=== PATIENT | male | born 1965 | race Caucasian/White ===

== ENCOUNTER 2017-03-04 11:47 | Observation (INO) | payer BC, MEDICARE ==
[2017-03-04 12:29] LABS: Basophils # (A) 0.1 k/uL (0-0.2); Basophils % (A) 1 %; CH 29.1; CHCM 33.9; Eosinophils # (A) 0.2 k/uL (0-0.7); Eosinophils % (A) 3 %; HDW 2.81; HGB 17.2 gm/dL (13.0-17.5); Luc % (Auto) 1; Lymphocytes # (A) 1.6 k/uL (1.0-4.8); Lymphocytes % (A) 21 %; MCH 29.1 pg (25.0-35.0); MCHC 33.7 g/dL (31.0-37.0); MCV 86.4 fL (80.0-100.0); Mean Platelet Volume 6.9; Monocytes # (A) 0.4 k/uL (0-1.0); Monocytes % (A) 5 %; Neutrophils # (A) 5.2 k/uL (1.3-7.7); Neutrophils % (A) 69 %; WBC 7.6 k/uL (3.8-10.6); WBC (Perox) 7.47
[2017-03-04 12:38] LABS: ALT 49 U/L (21-72); AST 19 U/L (17-59); Alkaline Phosphatase 95 U/L (38-126); Anion Gap 11 mmol/L; Blood Urea Nitrogen 14 mg/dL (9-20); Calcium 8.9 mg/dL (8.4-10.2); Carbon Dioxide 24 mmol/L (22-30); Chloride 103 mmol/L (98-107); Glucose 230 mg/dL (74-99); Magnesium 2.2 mg/dL (1.6-2.3); Non-African American GFR(MDRD) >60 (>60 ml/min/1.73 sqM); Potassium 4.5 mmol/L (3.5-5.1); Sodium 138 mmol/L (137-145); Total Bilirubin 0.7 mg/dL (0.2-1.3); Total Protein 7.3 g/dL (6.3-8.2)
--- NOTE | 2017-03-04 12:39 | XR ---
EXAMINATION TYPE: XR chest 2V DATE OF EXAM: 03/04/2017 COMPARISON: NONE HISTORY: Chest pain for 3 days and abnormal EKG. TECHNIQUE: Frontal and lateral views of the chest are obtained. FINDINGS: There is no focal air space opacity, pleural effusion, or pneumothorax seen. The cardiac silhouette size is upper limits of normal size. The osseous structures are intact. Mild multilevel de generative changes of the thoracic spine are noted. IMPRESSION: No acute cardiopulmonary process.
[2017-03-04 12:50] LABS: Partial Thromboplastin Time 23.4 sec (22.0-30.0); Prothrombin Time 10.2 sec (9.0-12.0)
[2017-03-04 12:54] LABS: Creatine Kinase 48 U/L (55-170)
--- NOTE | 2017-03-04 13:04 | ED ---
General Adult HPI - General Chief complaint: Chest Pain Stated complaint: chest pain/sent by doctor Time Seen by Provider: 03/04/17 12:08 Source: patient, RN notes reviewed, old records reviewed Mode of arrival: wheelchair Limitations: no limitations - History of Present Illness Initial comments: This is a 51-year-old male to the ER for evaluation regarding chest pain. Patient having anterior chest pain chest pain the left-sided chest pain the left jaw. Patient has history of diabetes high cholesterol. No prior history of heart disease. Patient coming in with continued chest pain or shortness of breath at this time, weakness fatigue. Worse with activity. No recent travel history no sick contacts no fevers cough or congestion - Related Data Home Medications Medication Instructions Recorded Confirmed Atorvastatin [Lipitor] 10 mg PO HS 01/30/14 03/04/17 Insulin Glulisine [Apidra] 20 unit SQ TID 01/30/14 03/04/17 Losartan [Cozaar] 50 mg PO DAILY 01/30/14 03/04/17 Dapagliflozin Propanediol [Farxiga] 10 mg PO DAILY 03/04/17 03/04/17 Escitalopram [Lexapro] 10 mg PO DAILY 03/04/17 03/04/17 HYDROcodone/APAP 7.5-325MG [[place]ron 1 tab PO Q6H PRN 03/04/17 03/04/17 7.5-325] Insulin Glargine,Hum.rec.anlog 110 units SQ DAILY 03/04/17 03/04/17 [Toujeo Solostar] Allergies Allergy/AdvReac Type Severity Reaction Status Date / Time meperidine HCl [From Demerol] Allergy Unknown Nausea & Verified 03/04/17 13:05 Vomiting Penicillins Allergy Unknown Unknown Verified 03/04/17 13:05 Childhood Review of Systems ROS Statement: Those systems with pertinent positive or pertinent negative responses have been documented in the HPI. ROS Other: All systems not noted in ROS Statement are negative. Past Medical History Past Medical History: Cancer, Diabetes Mellitus, Hyperlipidemia Additional Past Medical History / Comment(s): HX OF RECTAL CA(AGE 27), HAS COLOSTOMY, WHICH HE STATES IS HERNIATED. 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 History of Any Multi-Drug Resistant Organisms: None Reported Past Surgical History: Back Surgery, Bowel Resection, Orthopedic Surgery Additional Past Surgical History / Comment(s): BEKA KNEE, RT ROTATOR CUFF, COLOSTOMY (2007), REPAIR OF HERNIATED COLOSTOMY (2013) Past Anesthesia/Blood Transfusion Reactions: Postoperative Nausea & Vomiting ( PONV) Past Psychological History: Anxiety, Depression Smoking Status: Never smoker Past Alcohol Use History: None Reported Past Drug Use History: None Reported General Exam Limitations: no limitations General appearance: alert, in no apparent distress, obese Head exam: Present: atraumatic, normocephalic, normal inspection Eye exam: Present: normal appearance, PERRL, EOMI. Absent: scleral icterus, conjunctival injection, periorbital swelling ENT exam: Present: normal exam, mucous membranes moist Neck exam: Present: normal inspection. Absent: tenderness, meningismus, lymphadenopathy Respiratory exam: Present: normal lung sounds bilaterally. Absent: respiratory distress, wheezes, rales, rhonchi, stridor Cardiovascular Exam: Present: regular rate, normal rhythm, normal heart sounds. Absent: systolic murmur, diastolic murmur, rubs, gallop, clicks GI/Abdominal exam: Present: soft, normal bowel sounds. Absent: distended, tenderness, guarding, rebound, rigid Extremities exam: Present: normal inspection, full ROM, normal capillary refill. Absent: tenderness, pedal edema, joint swelling, calf tenderness Back exam: Present: normal inspection Neurological exam: Present: alert, oriented X3, CN II-XII intact Psychiatric exam: Present: normal affect, normal mood Skin exam: Present: warm, dry, intact, normal color. Absent: rash Course Vital Signs 03/04/17 03/04/17 11:58 13:23 Temperature 97.1 F L Pulse Rate 75 73 Respiratory 18 17 Rate Blood Pressure 139/83 124/72 O2 Sat by Pulse 99 96 Oximetry EKG Findings - EKG Comments: EKG Findings:: EKG shows normal sinus rhythm rate of 71, IN 146, QRS 102, QTc 447 Medical Decision Making - Medical Decision Making 51 male to ER for evaluation of chest pain. Patient will be admitted for chest pain observation, anticoagulation, cardiac evaluation - Lab Data Result diagrams: 03/04/17 12:15 03/04/17 12:15 Lab Results 03/04/17 03/04/17 03/04/17 Range/Units 12:15 12:15 12:15 WBC 7.6 (3.8-10.6) k/uL RBC 5.90 (4.30-5.90) m/uL Hgb 17.2 (13.0-17.5) gm/dL Hct 51.0 (39.0-53.0) % MCV 86.4 (80.0-100.0) fL MCH 29.1 (25.0-35.0) pg MCHC 33.7 (31.0-37.0) g/dL RDW 14.0 (11.5-15.5) % Plt Count 218 (150-450) k/uL Neutrophils % 69 % Lymphocytes % 21 % Monocytes % 5 % Eosinophils % 3 % Basophils % 1 % Neutrophils # 5.2 (1.3-7.7) k/uL Lymphocytes # 1.6 (1.0-4.8) k/uL Monocytes # 0.4 (0-1.0) k/uL Eosinophils # 0.2 (0-0.7) k/uL Basophils # 0.1 (0-0.2) k/uL PT (9.0-12.0) sec INR (<1.2) APTT (22.0-30.0) sec Sodium 138 (137-145) mmol/L Potassium 4.5 (3.5-5.1) mmol/L Chloride 103 (98-107) mmol/L Carbon Dioxide 24 (22-30) mmol/L Anion Gap 11 mmol/L BUN 14 (9-20) mg/dL Creatinine 0.80 (0.66-1.25) mg/dL Est GFR (MDRD) Af Amer >60 (>60 ml/min/1.73 sqM) Est GFR (MDRD) Non-Af >60 (>60 ml/min/1.73 sqM) Glucose 230 H (74-99) mg/dL Calcium 8.9 (8.4-10.2) mg/dL Magnesium 2.2 (1.6-2.3) mg/dL Total Bilirubin 0.7 (0.2-1.3) mg/dL AST 19 (17-59) U/L ALT 49 (21-72) U/L Alkaline Phosphatase 95 (38-126) U/L Total Creatine Kinase 48 L (55-170) U/L CK-MB (CK-2) 0.5 (0.0-2.4) ng/mL CK-MB (CK-2) Rel Index 1.0 Troponin I <0.012 (0.000-0.034) ng/mL Total Protein 7.3 (6.3-8.2) g/dL Albumin 4.2 (3.5-5.0) g/dL 03/04/17 Range/Units 12:15 WBC (3.8-10.6) k/uL RBC (4.30-5.90) m/uL Hgb (13.0-17.5) gm/dL Hct (39.0-53.0) % MCV (80.0-100.0) fL MCH (25.0-35.0) pg MCHC (31.0-37.0) g/dL RDW (11.5-15.5) % Plt Count (150-450) k/uL Neutrophils % % Lymphocytes % % Monocytes % % Eosinophils % % Basophils % % Neutrophils # (1.3-7.7) k/uL Lymphocytes # (1.0-4.8) k/uL Monocytes # (0-1.0) k/uL Eosinophils # (0-0.7) k/uL Basophils # (0-0.2) k/uL PT 10.2 (9.0-12.0) sec INR 1.0 (<1.2) APTT 23.4 (22.0-30.0) sec Sodium (137-145) mmol/L Potassium (3.5-5.1) mmol/L Chloride (98-107) mmol/L Carbon Dioxide (22-30) mmol/L Anion Gap mmol/L BUN (9-20) mg/dL Creatinine (0.66-1.25) mg/dL Est GFR (MDRD) Af Amer (>60 ml/min/1.73 sqM) Est GFR (MDRD) Non-Af (>60 ml/min/1.73 sqM) Glucose (74-99) mg/dL Calcium (8.4-10.2) mg/dL Magnesium (1.6-2.3) mg/dL Total Bilirubin (0.2-1.3) mg/dL AST (17-59) U/L ALT (21-72) U/L Alkaline Phosphatase (38-126) U/L Total Creatine Kinase (55-170) U/L CK-MB (CK-2) (0.0-2.4) ng/mL CK-MB (CK-2) Rel Index Troponin I (0.000-0.034) ng/mL Total Protein (6.3-8.2) g/dL Albumin (3.5-5.0) g/dL - Radiology Data Radiology results: report reviewed (Chest x-ray is negative for acute disease), image reviewed Critical Care Time Critical Care Time: Yes Total Critical Care Time: 31 Disposition Clinical Impression: Chest pain Disposition: ADMITTED IP TO THIS HOSP Condition: Undetermined Instructions: Chest Pain (ED) Referrals: Nelson Carney DO [Primary Care Provider] - 1-2 days
[2017-03-04 13:06] LABS: Creatine Kinase MB 0.5 ng/mL (0.0-2.4); Troponin I <0.012 ng/mL (0.000-0.034)
[2017-03-04] MEDS ORDERED: NITROGLYCERIN SL TABS 0.4 MG TAB SUBLINGUAL PRN (14:07)
[2017-03-04] MEDS ORDERED: HEPARIN SODIUM,PORCINE 5,000 UNIT/ML 1 ML VIAL IV ONE (14:07)
[2017-03-04] MEDS ORDERED: ASPIRIN 81 MG PO STA (14:07)
[2017-03-04] MEDS ORDERED: HEPARIN SODIUM,PORCINE 5,000 UNIT/ML 1 ML VIAL IV PRN (14:07)
[2017-03-04] MEDS ORDERED: HEPARIN SODIUM,PORCINE 25,000 UNIT in SODIUM CHLORIDE 0.45 % 500 ML IV SCH (14:15)
[2017-03-04 15:55] VITALS: RESP 18
[2017-03-04 16:59] LABS: Glucose,Whole Blood 184 mg/dL (75-99)
[2017-03-04 17:40] VITALS: BP 121/57; PULSE 78; TEMP 97.4
[2017-03-04] MEDS ORDERED: LOSARTAN 50 MG TAB PO SCH (21:00)
[2017-03-04] MEDS ORDERED: METOPROLOL TARTRATE 25 MG TAB PO SCH (21:00)
[2017-03-04] MEDS ORDERED: ESCITALOPRAM 10 MG TAB PO SCH (21:00)
[2017-03-05] MEDS ORDERED: ATORVASTATIN 80 MG TAB PO SCH (09:00)
[2017-03-05] MEDS ORDERED: INSULIN DETEMIR 100 UNIT/ML 10 ML VIAL SQ SCH (09:00)
[2017-03-05] MEDS ORDERED: ASPIRIN 325 MG TAB PO SCH (09:00)
[2017-03-05] MEDS ORDERED: INSULIN ASPART 100 UNIT/ML 1 ML 10 ML VIAL SQ SCH (18:00)
--- NOTE | 2017-03-05 19:37 | HP ---
HISTORY AND PHYSICAL CHIEF COMPLAINT: Chest pain. HISTORY OF PRESENT ILLNESS: This 51-year-old male was admitted through the emergency room to the floor. Shortly after he got the floor, he signed out against medical advice. There is no further history taken or physical performed. He is admitted to the hospital with diagnosis of chest pain. PLAN: Bed rest, IVs and serial EKGs and enzymes. He signed out AMA. JED / JESSICA: [id number] /
--- NOTE | 2017-03-06 08:18 | DS ---
DISCHARGE SUMMARY CHIEF COMPLAINT: Chest pain. HISTORY OF PRESENT ILLNESS AND PHYSICAL EXAM.: There was no history taken or physical performed. Patient signed out against medical advice. FINAL DIAGNOSIS: Chest pain. OPERATIONS: None. CONSULTATION: None. He signed out AMA. JED / JESSICA: [id number] /
== END 2017-03-04 19:00 | disposition left against medical advice (07) ==
LOC: EC 11:47 → 6SEL 14:07
PROVIDERS: ADMIT Family Medicine; ATTEND Family Medicine
DX: R07.89 Other chest pain (principal); Z53.21 Procedure and treatment not carried out due to patient leaving prior to being seen by health care provider; R06.02 Shortness of breath; R53.1 Weakness; E11.9 Type 2 diabetes mellitus without complications; E78.00 Pure hypercholesterolemia, unspecified; Z93.3 Colostomy status; F41.9 Anxiety disorder, unspecified; F32.9 Major depressive disorder, single episode, unspecified; Z79.899 Other long term (current) drug therapy; Z79.4 Long term (current) use of insulin; Z79.84 Long term (current) use of oral hypoglycemic drugs; Z88.0 Allergy status to penicillin; Z88.5 Allergy status to narcotic agent; Z85.048 Personal history of other malignant neoplasm of rectum, rectosigmoid junction, and anus; E66.9 Obesity, unspecified; Z68.34 Body mass index [BMI] 34.0-34.9, adult
CPT/HCPCS: 99291; 96374; 36415; 93005; 80053; 82550; 82553; 83735; 84484; 85025; 85610; 85730; 71020; G0378; J1644 ×2

== ENCOUNTER 2017-04-16 19:45 | Emergency (ER) | payer BC, MEDICARE, OTHER ==
[2017-04-16 19:51] VITALS: BP 150/73; PULSE 78; RESP 20; TEMP 97.8
--- NOTE | 2017-04-16 20:09 | ED ---
Back Pain HPI - General Chief Complaint: Back Pain/Injury Stated Complaint: FALL Time Seen by Provider: 04/16/17 19:53 Source: patient Limitations: no limitations - History of Present Illness Initial Comments: Patient is a 51-year-old male who presents with a chief complaint of fall and back injury. The [facility] when he fell on the escalator. The patient states that when he was going down the escalator, his right arm caught the railing on the stairs that were next to the escalator and lifted him up and he fell. The patient states that he scratched his back on the edges of the escalator step. The patient was immediately evaluated by medical staff at the [facility]. After that, the patient continued to [place] and later decided to come to the emergency department in [place] as he lives here. On initial evaluation, the patient states that he just wanted to get checked out. He does not have any spinal tenderness, his gait is at baseline. - Related Data Home Medications Medication Instructions Recorded Confirmed Atorvastatin [Lipitor] 10 mg PO DAILY 01/30/14 04/16/17 Insulin Glulisine [Apidra] 20 unit SQ TID 01/30/14 04/16/17 Losartan [Cozaar] 50 mg PO HS 01/30/14 04/16/17 Escitalopram [Lexapro] 10 mg PO HS 03/04/17 04/16/17 Insulin Glargine,Hum.rec.anlog 110 units SQ DAILY 03/04/17 04/16/17 [Toujeo Solostar] Aspirin EC [Ecotrin Low Dose] 81 mg PO DAILY 04/16/17 04/16/17 Empagliflozin [Jardiance] 10 mg PO DAILY 04/16/17 04/16/17 Insulin Aspart [NovoLOG 20 unit SQ AC-TID 04/16/17 04/16/17 (formulary)] Insulin Aspart [NovoLOG See Protocol SQ AC-TID 04/16/17 04/16/17 (formulary)] Allergies Allergy/AdvReac Type Severity Reaction Status Date / Time meperidine HCl [From Demerol] Allergy Unknown Nausea & Verified 04/16/17 19:57 Vomiting Penicillins Allergy Unknown Unknown Verified 04/16/17 19:57 Childhood Review of Systems ROS Statement: Those systems with pertinent positive or pertinent negative responses have been documented in the HPI. ROS Other: All systems not noted in ROS Statement are negative. 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 History of Any Multi-Drug Resistant Organisms: None Reported Past Surgical History: Back Surgery, Bowel Resection, Orthopedic Surgery Additional Past Surgical History / Comment(s): 2002 AP resection, 2006 resection /colostomy, 2012 repair stoma hernia, large cyst removed from low back, R rotator cuff surgery, multiple colonoscopies, R knee arthroscopy, L hydocele/ small tumor removed, fatty tumors removed from back, 2 benign tumors removed from R groin. Past Anesthesia/Blood Transfusion Reactions: Postoperative Nausea & Vomiting ( PONV) Past Psychological History: Anxiety, Depression Smoking Status: Never smoker Past Alcohol Use History: None Reported Past Drug Use History: None Reported - Past Family History Mother Family Medical History: Myocardial Infarction ([place]) Additional Family Medical History / Comment(s): Pt states mother at the age of 51 yrs from [place]/aortic aneurysm rupture. Father Family Medical History: No Reported History Additional Family Medical History / Comment(s): Father is 78yrs old and healthy. General Exam Limitations: no limitations General appearance: alert, in no apparent distress Head exam: Present: atraumatic, normocephalic Eye exam: Present: normal appearance ENT exam: Present: mucous membranes moist Neck exam: Absent: tenderness Respiratory exam: Present: normal lung sounds bilaterally Cardiovascular Exam: Present: regular rate, normal rhythm GI/Abdominal exam: Present: soft Extremities exam: Present: other (Patient has a very small abrasion to the right distal dorsal aspect of his calf). Absent: pedal edema Back exam: Present: normal inspection Neurological exam: Present: alert, oriented X3 Psychiatric exam: Present: normal affect, normal mood Skin exam: Present: abrasion (Patient has 4 linear abrasions to the right paraspinal aspect of his lower back. There is no bleeding.) Course Vital Signs 04/16/17 19:46 Temperature 97.8 F Pulse Rate 78 Respiratory 20 Rate Blood Pressure 150/73 O2 Sat by Pulse 98 Oximetry Medical Decision Making - Medical Decision Making Patient presents with a chief complaint of a fall on an escalator. The patient states that he scratched his skin on his back on the escalator steps. He is up- to-date on his tetanus. Patient is able to gait normally. He is not having significant pain. He was offered x-rays but declines as he would not like to be exposed to radiation because he has had colon cancer before. At this time, the patient will have antibiotic ointment applied to the area will be discharged. He was instructed to follow-up with primary care or return to the emergency department if symptoms worsen or change. Disposition Clinical Impression: Abrasion Disposition: HOME SELF-CARE Condition: Good Instructions: Abrasion (ED) Referrals: Nelson Carney DO [Primary Care Provider] - 1-2 days
== END 2017-04-16 20:20 | disposition home or self-care (01) ==
LOC: EC 19:45
DX: S30.810A Abrasion of lower back and pelvis, initial encounter (principal); E11.9 Type 2 diabetes mellitus without complications; I10 Essential (primary) hypertension; M19.90 Unspecified osteoarthritis, unspecified site; F32.9 Major depressive disorder, single episode, unspecified; F41.9 Anxiety disorder, unspecified; Z85.048 Personal history of other malignant neoplasm of rectum, rectosigmoid junction, and anus; Z79.4 Long term (current) use of insulin; Z79.82 Long term (current) use of aspirin; Z79.899 Other long term (current) drug therapy; Z88.0 Allergy status to penicillin; Z88.5 Allergy status to narcotic agent; W10.0XXA Fall (on)(from) escalator, initial encounter; Y92.59 Other trade areas as the place of occurrence of the external cause
CPT/HCPCS: 99283

== ENCOUNTER 2017-12-01 13:33 | Emergency (ER) | payer BC, MEDICARE ==
--- NOTE | 2017-12-01 14:27 | XR ---
Right hand HISTORY: Right hand pain, trauma 3 views of the right hand Bone mineralization and joint spaces are maintained. There is some volar angulation of the fifth meta carpal, cortical thickening is present suggestive of old healed boxer's fracture. Remodeling present at the radiocarpal joint likely due to underlying arthropathy. Question bony density at the proximal aspect of the first metacarpal seen on the lateral exam, correlate for point tenderness. There is sof t tissue swelling. IMPRESSION: No dislocation. Findings at the first and fifth metacarpals as described. Correlate for p oint tenderness.
[2017-12-01 15:39] VITALS: BP 120/70; PULSE 70; RESP 18; TEMP 98
--- NOTE | 2017-12-01 15:44 | ED ---
Upper Extremity HPI - General Chief Complaint: Extremity Injury, Upper Stated Complaint: right hand pain Time Seen by Provider: 12/01/17 15:19 Source: patient, RN notes reviewed Mode of arrival: ambulatory Limitations: no limitations - History of Present Illness Initial Comments: This is a 52-year-old male who presents to the emergency department with chief complaint of right hand injury. Patient reports falling yesterday on an outstretched hand. He reports pain to the joint of his thumb and down into the proximal hand. States he has difficulty flexing the finger. Reports normal sensation. Denies any other injuries or trauma. Denies fever, chills, chest pain, shortness of breath, numbness or tingling, headache or vision changes. - Related Data Home Medications Medication Instructions Recorded Confirmed Atorvastatin [Lipitor] 10 mg PO DAILY 01/30/14 04/16/17 Insulin Glulisine [Apidra] 20 unit SQ TID 01/30/14 04/16/17 Losartan [Cozaar] 50 mg PO HS 01/30/14 04/16/17 Escitalopram [Lexapro] 10 mg PO HS 03/04/17 04/16/17 Insulin Glargine,Hum.rec.anlog 110 units SQ DAILY 03/04/17 04/16/17 [Toujeo Solostar] Aspirin EC [Ecotrin Low Dose] 81 mg PO DAILY 04/16/17 04/16/17 Empagliflozin [Jardiance] 10 mg PO DAILY 04/16/17 04/16/17 Insulin Aspart [NovoLOG 20 unit SQ AC-TID 04/16/17 04/16/17 (formulary)] Insulin Aspart [NovoLOG See Protocol SQ AC-TID 04/16/17 04/16/17 (formulary)] Allergies Allergy/AdvReac Type Severity Reaction Status Date / Time meperidine HCl [From Demerol] Allergy Unknown Nausea & Verified 12/01/17 15:49 Vomiting Penicillins Allergy Unknown Unknown Verified 12/01/17 15:49 Childhood Review of Systems ROS Statement: Those systems with pertinent positive or pertinent negative responses have been documented in the HPI. ROS Other: All systems not noted in ROS Statement are negative. 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 History of Any Multi-Drug Resistant Organisms: None Reported Past Surgical History: Back Surgery, Bowel Resection, Orthopedic Surgery Additional Past Surgical History / Comment(s): 2002 AP resection, 2006 resection /colostomy, 2012 repair stoma hernia, large cyst removed from low back, R rotator cuff surgery, multiple colonoscopies, R knee arthroscopy, L hydocele/ small tumor removed, fatty tumors removed from back, 2 benign tumors removed from R groin. Past Anesthesia/Blood Transfusion Reactions: Postoperative Nausea & Vomiting ( PONV) Past Psychological History: Anxiety, Depression Smoking Status: Never smoker Past Alcohol Use History: None Reported Past Drug Use History: None Reported - Past Family History Mother Family Medical History: Myocardial Infarction ([place]) Additional Family Medical History / Comment(s): Pt states mother at the age of 51 yrs from [place]/aortic aneurysm rupture. Father Family Medical History: No Reported History Additional Family Medical History / Comment(s): Father is 78yrs old and healthy. General Exam - General Exam Comments Initial Comments: General: Awake and alert, well-developed; in no apparent distress. HEENT: Head atraumatic, normocephalic. Pupils are equal, round and reactive to light. Extraocular movements intact. Oropharynx moist without erythema or exudate. Neck: Supple. Normal ROM. Cardiovascular: Regular rate and rhythm. No murmurs, rubs or gallops. Chest symmetrical. Respiratory: Lungs clear to auscultation bilaterally. No wheezes, rales or rhonchi. Normal respiratory effort with no use of accessory muscles. Musculoskeletal: Limited active range of motion of the IP and MCP joints of the right thumb. Passive range of motion is intact. Tenderness on palpation of the MCP joint and anatomic snuffbox. Soft tissue swelling along radial aspect right wrist. No ecchymosis, erythema noted. Sensation is intact. Radial pulses are 2+ equal and palpable bilaterally. Ambulating with a cane. Skin: [place], warm and dry without rashes or lesions. Neurological: Alert and oriented x3. CN II-XII grossly intact. Speech is fluent and answers are appropriate. No focal neuro deficits. Psychiatric: Normal mood and affect. No overt signs of depression or anxiety noted. Limitations: no limitations Course Vital Signs 12/01/17 12/01/17 13:54 15:38 Temperature 98.4 F 98 F Pulse Rate 74 70 Respiratory 16 18 Rate Blood Pressure 142/74 120/70 O2 Sat by Pulse 96 98 Oximetry Procedures - Orthopedic Splinting/Casting Injury #1 Side: right Upper Extremity Injury Location: wrist Upper Extremity Immobilizer: thumb spica, synthetic pre-padded splint Medical Decision Making - Medical Decision Making This is a 52-year-old male who presents to the emergency department with chief complaint of right hand injury. Patient reports falling on outstretched hand yesterday. On physical examination, patient has limited active range of motion of the right thumb joints due to pain. There is anatomic snuffbox tenderness and tenderness at the MCP joint. Short arm OCL thumb spica splint was placed and patient tolerated well without complication. He is neurovascularly intact. Recommended following up with orthopedics for repeat x-rays. Recommended rest, ice and Tylenol or ibuprofen as needed. Patient is in agreement with plan and voices understanding. Vital signs are stable and he is in no acute distress. He will be discharged with this time. All questions answered. - Radiology Data Radiology results: report reviewed, image reviewed X-ray right hand findings: Bone mineralization and joint spaces are maintained. There is some volar angulation of the fifth metacarpal, cortical thickening is present suggestive of old healed boxer's fracture. Remodeling present at the radiocarpal joint likely due to underlying arthropathy. Question bony density at the proximal aspect of the first metacarpal seen on the lateral exam, correlate for point tenderness. There is soft tissue swelling. Impression: No dislocation. Findings at the fifth and first metacarpals as described. Correlate for point tenderness. Disposition Clinical Impression: Right wrist pain Disposition: HOME SELF-CARE Condition: Good Instructions: Wrist Injury (ED) Additional Instructions: Please follow up with [facility] within 1-2 days. Please keep splint clean, dry and intact. Please rest, ice and take ibuprofen or Tylenol as needed for pain. Please follow up with primary care provider within 1-2 days. Return to emergency department if symptoms should worsen or any concerns arise. Is patient prescribed a controlled substance at d/c from ED?: No Referrals: Nelson Carney DO [Primary Care Provider] - 1-2 days Rome Fuentes MD [Medical Doctor] - 1-2 days Time of Disposition: 15:50
== END 2017-12-01 16:21 | disposition home or self-care (01) ==
LOC: EC 13:33
DX: M25.531 Pain in right wrist (principal); M79.89 Other specified soft tissue disorders; M79.644 Pain in right finger(s); I10 Essential (primary) hypertension; E11.9 Type 2 diabetes mellitus without complications; M19.041 Primary osteoarthritis, right hand; M19.042 Primary osteoarthritis, left hand; F32.9 Major depressive disorder, single episode, unspecified; F41.9 Anxiety disorder, unspecified; Z79.4 Long term (current) use of insulin; Z79.82 Long term (current) use of aspirin; Z79.899 Other long term (current) drug therapy; Z88.0 Allergy status to penicillin; Z88.5 Allergy status to narcotic agent; Z85.048 Personal history of other malignant neoplasm of rectum, rectosigmoid junction, and anus; Z98.890 Other specified postprocedural states; Z93.3 Colostomy status; W19.XXXA Unspecified fall, initial encounter
CPT/HCPCS: 29125; 99283

== ENCOUNTER 2018-10-15 14:55 | Emergency (ER) | payer BC, MEDICARE ==
[2018-10-15 15:01] VITALS: BP 144/87; PULSE 74; RESP 18; TEMP 98
--- NOTE | 2018-10-15 15:11 | ED ---
Fall HPI - General Chief Complaint: Fall Stated Complaint: Fall Time Seen by Provider: 10/15/18 15:04 Source: patient, RN notes reviewed Mode of arrival: ambulatory Limitations: no limitations - History of Present Illness Initial Comments: 53-year-old male presents emergency Department chief complaint of a fall. Patient states that he is out of back of a chair trying to lift it up to get onto the tongue of the truck. Patient states it started rolling he fell off onto his right side of his chest. He has no headache denies any head injury no loss conscious. Denies any extremity injury. Patient states he only has right anterior rib pain. Patient has pain with deep inspiration. Patient does not feel short of breath at rest denies any nausea vomiting. Patient denies any other complaints. Patient does not request any pain meds. - Related Data Home Medications Medication Instructions Recorded Confirmed Atorvastatin [Lipitor] 10 mg PO DAILY 01/30/14 12/01/17 Insulin Glulisine [Apidra] 20 unit SQ TID 01/30/14 12/01/17 Losartan [Cozaar] 50 mg PO HS 01/30/14 12/01/17 Escitalopram [Lexapro] 10 mg PO HS 03/04/17 12/01/17 Insulin Glargine,Hum.rec.anlog 110 units SQ DAILY 03/04/17 12/01/17 [Toujeo Solostar] Acetaminophen [Tylenol] 325 mg PO Q4H PRN 12/01/17 12/01/17 Allergies Allergy/AdvReac Type Severity Reaction Status Date / Time meperidine HCl [From Demerol] Allergy Unknown Nausea & Verified 10/15/18 15:01 Vomiting Penicillins Allergy Unknown Unknown Verified 10/15/18 15:01 Childhood Review of Systems ROS Statement: Those systems with pertinent positive or pertinent negative responses have been documented in the HPI. ROS Other: All systems not noted in ROS Statement are negative. 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 History of Any Multi-Drug Resistant Organisms: None Reported Past Surgical History: Back Surgery, Bowel Resection, Orthopedic Surgery Additional Past Surgical History / Comment(s): 2002 AP resection, 2006 resection/colostomy, 2013 repair stoma hernia, large cyst removed from low back, R rotator cuff surgery, multiple colonoscopies, R knee arthroscopy, L hydocele/small tumor removed, fatty tumors removed from back, 2 benign tumors removed from R groin. Past Anesthesia/Blood Transfusion Reactions: Postoperative Nausea & Vomiting (PONV) Past Psychological History: Anxiety, Depression Smoking Status: Never smoker Past Alcohol Use History: None Reported Past Drug Use History: None Reported - Past Family History Mother Family Medical History: Myocardial Infarction ([place]) Additional Family Medical History / Comment(s): Pt states mother at the age of 51 yrs from [place]/aortic aneurysm rupture. Father Family Medical History: No Reported History Additional Family Medical History / Comment(s): Father is 78yrs old and healthy. General Exam Limitations: no limitations General appearance: alert, in no apparent distress Head exam: Present: atraumatic, normocephalic, normal inspection Eye exam: Present: normal appearance, PERRL, EOMI. Absent: scleral icterus, conjunctival injection, periorbital swelling ENT exam: Present: normal exam, normal oropharynx, mucous membranes moist, TM's normal bilaterally Neck exam: Present: normal inspection, full ROM. Absent: tenderness, meningismus, lymphadenopathy Respiratory exam: Present: normal lung sounds bilaterally, chest wall tenderness (Moderate right anterior to lateral rib tenderness small area of erythema no ecchymosis). Absent: respiratory distress, wheezes, rales, rhonchi, stridor Cardiovascular Exam: Present: regular rate, normal rhythm, normal heart sounds. Absent: systolic murmur, diastolic murmur, rubs, gallop, clicks GI/Abdominal exam: Present: soft, normal bowel sounds. Absent: distended, tenderness, guarding, rebound, rigid Extremities exam: Present: normal inspection, full ROM, normal capillary refill. Absent: tenderness, pedal edema, joint swelling, calf tenderness Neurological exam: Present: alert, oriented X3, CN II-XII intact, reflexes normal. Absent: motor sensory deficit Skin exam: Present: warm, dry, intact, normal color. Absent: rash Course Vital Signs 10/15/18 14:58 Temperature 98.0 F Pulse Rate 74 Respiratory 18 Rate Blood Pressure 144/87 O2 Sat by Pulse 99 Oximetry Medical Decision Making - Medical Decision Making 53-year-old male present emergency Department for fall, right chest wall injury. Rib series and PA chest were obtained no acute abnormality. Patient does not have a pneumothorax no rib fracture identified. Patient was offered pain meds and declined. Disposition Clinical Impression: Fall, Contusion of rib on right side Disposition: HOME SELF-CARE Condition: Stable Instructions (If sedation given, give patient instructions): Rib Contusion (ED) Additional Instructions: Please return to the Emergency Department if symptoms worsen or any other concerns. Is patient prescribed a controlled substance at d/c from ED?: No Referrals: Nelson Carney DO [Primary Care Provider] - 1-2 days Time of Disposition: 15:38
--- NOTE | 2018-10-15 15:34 | XR ---
EXAMINATION TYPE: XR ribs RT w pa chest xray DATE OF EXAM: 10/15/2018 COMPARISON: Chest x-ray 03/04/2017 HISTORY: Right rib pain. Injury. TECHNIQUE: 5 views including a chest x-ray FINDINGS: Heart and mediastinum are normal. Lungs are clear. There is no pleural effusion. Bony thora x is intact. There is no evidence of pneumothorax. The right ribs appear intact. IMPRESSION: Normal chest. Normal right ribs. No change.
== END 2018-10-15 16:10 | disposition home or self-care (01) ==
LOC: EC 14:55
DX: S20.211A Contusion of right front wall of thorax, initial encounter (principal); E11.9 Type 2 diabetes mellitus without complications; I10 Essential (primary) hypertension; F32.9 Major depressive disorder, single episode, unspecified; F41.9 Anxiety disorder, unspecified; Z88.0 Allergy status to penicillin; Z88.5 Allergy status to narcotic agent; Z79.4 Long term (current) use of insulin; Z79.899 Other long term (current) drug therapy; Z85.048 Personal history of other malignant neoplasm of rectum, rectosigmoid junction, and anus; Z93.3 Colostomy status; Z53.20 Procedure and treatment not carried out because of patient's decision for unspecified reasons; W17.89XA Other fall from one level to another, initial encounter; Y93.89 Activity, other specified
CPT/HCPCS: 99283

== ENCOUNTER 2019-03-18 00:56 | Emergency (ER) | payer BC, MEDICARE ==
[2019-03-18 01:11] VITALS: BP 125/70; PULSE 72; RESP 20; TEMP 97.9
--- NOTE | 2019-03-18 01:32 | XR ---
EXAMINATION TYPE: XR ankle complete LT DATE OF EXAM: 03/18/2019 COMPARISON: NONE HISTORY: Ankle pain TECHNIQUE: 3 views FINDINGS: Ankle mortise is anatomic. There is mild soft tissue swelling over the lateral malleolus. I see no fracture nor dislocation. Joint spaces are fairly normal. IMPRESSION: Soft tissue swelling. No fracture seen.
--- NOTE | 2019-03-18 01:38 | ED ---
Lower Extremity Injury HPI - General Chief Complaint: Extremity Injury, Lower Stated Complaint: L Ankle Injury Time Seen by Provider: 03/18/19 01:21 Source: patient, family Mode of arrival: ambulatory Limitations: no limitations - History of Present Illness Initial Comments: Patient is a 53-year-old male presenting to emergency Department with a chief c omplaint of ankle pain. Patient reports about 9 hours ago he was walking when he rolled his left ankle. Patient reports initially there was minimal pain or swelling so he continued about doing his daily activities. He states he woke up around midnight tonight with a severe onset of pain along the lateral aspect of the left ankle. Patient reports pain with inversion and plantarflexion. Patient also reports some swelling in the region but denies any skin discoloration. Patient denies any numbness or tingling. Patient does not take any medication to alleviate the symptoms. - Related Data Home Medications Medication Instructions Recorded Confirmed Atorvastatin [Lipitor] 10 mg PO DAILY 01/30/14 12/01/17 Insulin Glulisine [Apidra] 20 unit SQ TID 01/30/14 12/01/17 Losartan [Cozaar] 50 mg PO HS 01/30/14 12/01/17 Escitalopram [Lexapro] 10 mg PO HS 03/04/17 12/01/17 Insulin Glargine,Hum.rec.anlog 110 units SQ DAILY 03/04/17 12/01/17 [Toujeo Solostar] Acetaminophen [Tylenol] 325 mg PO Q4H PRN 12/01/17 12/01/17 Allergies Allergy/AdvReac Type Severity Reaction Status Date / Time meperidine HCl [From Demerol] Allergy Unknown Nausea & Verified 03/18/19 01:11 Vomiting Penicillins Allergy Unknown Unknown Verified 03/18/19 01:11 Childhood Review of Systems ROS Statement: Those systems with pertinent positive or pertinent negative responses have been documented in the HPI. ROS Other: All systems not noted in ROS Statement are negative. 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 History of Any Multi-Drug Resistant Organisms: None Reported Past Surgical History: Back Surgery, Bowel Resection, Orthopedic Surgery Additional Past Surgical History / Comment(s): 2002 AP resection, 2006 resection/colostomy, 2013 repair stoma hernia, large cyst removed from low back, R rotator cuff surgery, multiple colonoscopies, R knee arthroscopy, L hydocele/small tumor removed, fatty tumors removed from back, 2 benign tumors removed from R groin. Past Anesthesia/Blood Transfusion Reactions: Postoperative Nausea & Vomiting (PONV) Past Psychological History: Anxiety, Depression Smoking Status: Never smoker Past Alcohol Use History: None Reported Past Drug Use History: None Reported - Past Family History Mother Family Medical History: Myocardial Infarction ([place]) Additional Family Medical History / Comment(s): Pt states mother at the age of 51 yrs from [place]/aortic aneurysm rupture. Father Family Medical History: No Reported History Additional Family Medical History / Comment(s): Father is 78yrs old and healthy. General Exam Limitations: no limitations General appearance: alert, in no apparent distress Head exam: Present: atraumatic, normocephalic, normal inspection Eye exam: Present: normal appearance Pupils: Present: normal accommodation ENT exam: Present: normal exam, mucous membranes moist Neck exam: Present: normal inspection, full ROM Respiratory exam: Present: normal lung sounds bilaterally Cardiovascular Exam: Present: regular rate, normal rhythm, normal heart sounds Extremities exam: Present: tenderness (Tenderness along the lateral malleolus.), normal capillary refill, joint swelling, other (+2 dorsalis pedis and posterior tibialis bilaterally. Neuro exam unremarkable in the left lower leg.). Absent: normal inspection (Swelling along the lateral malleolus of the left ankle. No skin discoloration.), full ROM (Limited range of motion with inversion and plantarflexion.), pedal edema, calf tenderness Back exam: Present: normal inspection, full ROM Neurological exam: Present: alert, oriented X3 Psychiatric exam: Present: normal affect, normal mood Skin exam: Present: warm, dry, intact, normal color Course Vital Signs 03/18/19 01:08 Temperature 97.9 F Pulse Rate 72 Respiratory 20 Rate Blood Pressure 125/70 O2 Sat by Pulse 97 Oximetry Medical Decision Making - Medical Decision Making Patient is 53-year-old male presenting to the emergency department with chief complaint of left ankle pain. On exam there appears to be some tenderness along the left lateral malleolus. Pain with inversion and plantarflexion. X-ray shows soft tissue swelling but no fractures. Patient offered analgesia but he declined. Ankle stirrup applied. Patient advised to follow with orthopedics. Strict return parameters were thoroughly discussed the patient was understanding and agreeable. Patient advised to apply ice compress to minimize symptoms. Patient advised to alternate between Tylenol and ibuprofen for pain control. Case discussed with physician. Disposition Clinical Impression: Left ankle sprain Disposition: HOME SELF-CARE Condition: Stable Instructions (If sedation given, give patient instructions): Ankle Sprain (ED) Additional Instructions: Please avoid weightbearing and apply ice compress to minimize symptoms. Alternate between Tylenol and ibuprofen for pain control. Please follow with orthopedics. Is patient prescribed a controlled substance at d/c from ED?: No Referrals: Nelson Carney DO [Primary Care Provider] - 1-2 days Timothy Morel DO [Doctor of Osteopathic Medicine] - 1-2 days Time of Disposition: 01:38
== END 2019-03-18 01:54 | disposition home or self-care (01) ==
LOC: EC 00:56
DX: S93.402A Sprain of unspecified ligament of left ankle, initial encounter (principal); E11.9 Type 2 diabetes mellitus without complications; I10 Essential (primary) hypertension; F41.9 Anxiety disorder, unspecified; F32.9 Major depressive disorder, single episode, unspecified; Z79.4 Long term (current) use of insulin; Z79.899 Other long term (current) drug therapy; Z88.0 Allergy status to penicillin; Z88.5 Allergy status to narcotic agent; X50.9XXA Other and unspecified overexertion or strenuous movements or postures, initial encounter; Y93.01 Activity, walking, marching and hiking
CPT/HCPCS: 73610; 99283; 29515; L4350

== ENCOUNTER 2020-03-16 09:06 | Emergency (ER) | payer BC, MEDICARE ==
[2020-03-16 09:09] VITALS: BP 142/75; PULSE 90; RESP 18; TEMP 98.6
--- NOTE | 2020-03-16 09:28 | ED ---
General Adult HPI - General Chief complaint: Skin/Abscess/Foreign Body Stated complaint: Rash, covid + Time Seen by Provider: 03/16/20 09:14 Source: patient, RN notes reviewed Mode of arrival: ambulatory Limitations: no limitations - History of Present Illness Initial comments: This a 54-year-old male presents emergency department tingling or rash. Patient states has been present for last foot few days. Patient states that it's very itchy when he takes Benadryl he states symptoms to go away. Patient states that the new he can think of is a new leather furniture. Patient states he has no difficulty breathing or difficulty swallowing. He denies any new products soaps lotions detergents. He does add that he was positive for covid last week. Patient states that he is unsure if it is related to it. Patient is a diabetic and which she is on insulin. Patient states that he's had no changes of his meds. - Related Data Home Medications Medication Instructions Recorded Confirmed Atorvastatin [Lipitor] 10 mg PO DAILY 01/30/14 12/01/17 Insulin Glulisine [Apidra] 20 unit SQ TID 01/30/14 12/01/17 Losartan [Cozaar] 50 mg PO HS 01/30/14 12/01/17 Escitalopram [Lexapro] 10 mg PO HS 03/04/17 12/01/17 Insulin Glargine,Hum.rec.anlog 110 units SQ DAILY 03/04/17 12/01/17 [Toujeo Solostar] Acetaminophen [Tylenol] 325 mg PO Q4H PRN 12/01/17 12/01/17 Previous Rx's Medication Instructions Recorded Famotidine [Pepcid] 20 mg PO BID #28 tablet 03/16/20 Allergies Allergy/AdvReac Type Severity Reaction Status Date / Time meperidine HCl [From Demerol] Allergy Unknown Nausea & Verified 03/16/20 09:09 Vomiting Penicillins Allergy Unknown Unknown Verified 03/16/20 09:09 Childhood Review of Systems ROS Statement: Those systems with pertinent positive or pertinent negative responses have been documented in the HPI. ROS Other: All systems not noted in ROS Statement are negative. 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 History of Any Multi-Drug Resistant Organisms: None Reported Past Surgical History: Back Surgery, Bowel Resection, Orthopedic Surgery Additional Past Surgical History / Comment(s): 2002 AP resection, 2006 resection/colostomy, 2012 repair stoma hernia, large cyst removed from low back, R rotator cuff surgery, multiple colonoscopies, R knee arthroscopy, L hydocele/small tumor removed, fatty tumors removed from back, 2 benign tumors removed from R groin. Past Anesthesia/Blood Transfusion Reactions: Postoperative Nausea & Vomiting (PONV) Past Psychological History: Anxiety, Depression Smoking Status: Never smoker Past Alcohol Use History: None Reported Past Drug Use History: None Reported - Past Family History Mother Family Medical History: Myocardial Infarction ([place]) Additional Family Medical History / Comment(s): Pt states mother at the age of 51 yrs from [place]/aortic aneurysm rupture. Father Family Medical History: No Reported History Additional Family Medical History / Comment(s): Father is 78yrs old and healthy. General Exam Limitations: no limitations General appearance: alert, in no apparent distress Head exam: Present: atraumatic, normocephalic, normal inspection Eye exam: Present: normal appearance, PERRL, EOMI. Absent: scleral icterus, conjunctival injection, periorbital swelling ENT exam: Present: normal exam, normal oropharynx, mucous membranes moist Neck exam: Present: normal inspection. Absent: tenderness, meningismus, ly mphadenopathy Respiratory exam: Present: normal lung sounds bilaterally. Absent: respiratory distress, wheezes, rales, rhonchi, stridor Cardiovascular Exam: Present: regular rate, normal rhythm, normal heart sounds. Absent: systolic murmur, diastolic murmur, rubs, gallop, clicks GI/Abdominal exam: Present: soft, normal bowel sounds, other (Left lower colostomy noted). Absent: distended, tenderness, guarding, rebound, rigid Skin exam: Present: warm, dry, intact, normal color, rash (Blanchable slightly raised erythematous to salmon colored patches consistent with urticaria), urticaria Course Vital Signs 12/06/20 09:07 Temperature 98.6 F Pulse Rate 90 Respiratory 18 Rate Blood Pressure 142/75 O2 Sat by Pulse 96 Oximetry Medical Decision Making - Medical Decision Making Patient presented for rash. Patient's symptoms have resolved with antihistamines. Patient appears to have urticaria related to ALLERGIC reaction. Patient will be placed on steroids as is not in acute anaphylactic reaction and he has known diabetic. Patient will be placed on Pepcid and will continue Benadryl. Disposition Clinical Impression: Urticaria, Allergic reaction Disposition: HOME SELF-CARE Condition: Stable Instructions (If sedation given, give patient instructions): Urticaria (ED) Additional Instructions: Continue Benadryl 50 mg every 6 hours as directed.Please return to the Emergency Department if symptoms worsen or any other concerns. Prescriptions: Famotidine [Pepcid] 20 mg PO BID #28 tablet Is patient prescribed a controlled substance at d/c from ED?: No Referrals: Nelson Carney DO [Primary Care Provider] - 1-2 days Time of Disposition: 09:28
== END 2020-03-16 09:38 | disposition home or self-care (01) ==
LOC: EC 09:06
DX: L50.0 Allergic urticaria (principal); E11.9 Type 2 diabetes mellitus without complications; I10 Essential (primary) hypertension; F41.9 Anxiety disorder, unspecified; F32.9 Major depressive disorder, single episode, unspecified; Z79.4 Long term (current) use of insulin; Z79.899 Other long term (current) drug therapy; Z88.0 Allergy status to penicillin; Z88.5 Allergy status to narcotic agent; Z85.048 Personal history of other malignant neoplasm of rectum, rectosigmoid junction, and anus
CPT/HCPCS: 99282